=== PATIENT | female | born 1960 | race Caucasian/White ===

== ENCOUNTER 2020-11-10 10:25 | Day surgery (SDC) | payer MEDICAID, SELFPAY ==
[2020-11-10] VITALS (7 sets, daily range): BP systolic 111–168; BP diastolic 72–92; PULSE 60–69; RESP 16–18; TEMP 36.6; O2SAT 91–99; BMI 37.3
--- NOTE | 2020-11-10 | IR_ITS ---
APPROVED REPORT Patient Location: Outpatient Card Boxer: HALLE Roper RT (R) PROCEDURES Pocket Revision Removal of old generator Implant of Automatic implantable cardioverter defibrillator. INDICATION End of battery life. Informed consent was obtained prior to the procedure. COMPLICATIONS None Estimated Blood Loss: less than [address] Atul Costa Primary Home Coordinator Dr. Luis Alberto Michel observed 1% lidocaine with epinephrine used to anesthetize the left anterior aspect of the chest. Scalpel was used to make the initial cutaneous incision and then used to dissect down to the existing generator. The generator was removed from the existing pocket. Digital manipulation was required along with intermittent usage of scalpel in order to revise the pocket. The leads were removed from the old generator. The new generator was screwed to the existing leads and secured into place. Electronic interrogation proved acceptable thresholds and voltage within the lead. Antibiotics were used to flush the pocket and the pacemaker was secured using 3-0 silk into the newly revised pocket. Monocryl was used to close the subcutaneous tissue and then paul were placed on the cutaneous area in order to approximate the incision. Patient was transferred to the postop holding area in stable condition. INTERROGATION Explanted Generator Model number: Guidant E110 Explanted Generator Serial number: [id number] New Generator model number: Amol EL ICD D121 New Generator serial number: [id number] Right Atrial Lead model number: Fineline II 4473 Right Atrial Lead serial number: [id number] P-wave: 8.0 mV Impedence: 359 Ohms Threshold: 0.8V @.4 ms Right Ventricular lead model number: Bruner 0158 Right Ventricular lead serial number: [id number] R-wave: 25 mV Impedence: 463Ohms Threshold: 0.8V @0.4 ms Pacing Parameters: Mode: DDDR Base/Max Track: 60/130 ppm ICD Rate Cutoffs: VT: 180 bpm, 10.0 sec ATP, 41j x 6 VT-1: 160 bpm, 10 sec Monitor only VF: 200 bpm, 2.5 sec Quick Convert, 41j x 8 No diaphragmatic stimulation at 10 volts. IMPRESSION Successful pocket Revision Successful removal of old generator Successful Implant of Automatic implantable cardioverter defibrillator. PLAN 1. Postop wound care. Electronically signed by : Atul Costa, 11/10/2020 16:02:27
--- NOTE | 2020-11-10 11:17 | HMH.ANESCL ---
[facility] Anesthesia Checklist - Patient Identification Patient Identification: Arm Band - Structural Data Admitted From: Home Planned Operative Procedure/s: Pacemaker generator change Consent for Planned Operative Procedure(s) Verified: Yes Verified Documents: Surgical Consent, History and Physical - NPO Status Verified Time NPO: 00:00 - Additional verifications Anesthesia Reactions: No - Airway Assessment C-Spine Mobility Assessed: Yes (mp2) TMJ Mobility Assessed: Yes Dentition: Good Dentition - Neurological Assessment Level of Consciousness: Awake, Alert - Anesthesia Plan Anesthesia Risk discussed: Yes Anesthesia Plan: Verified ASA Class: III Anesthesia Type: MAC [facility] History I have reviewed the patient's past medical history: Yes Medical History: Reports:: Anxiety, Hyperlipidemia, Hypertension, Internal Pacemaker, Lung Disease (hayde-cpap hs) *Have you ever received a pneumonia vaccine?: No *Have you received a flu vaccine this season?: Yes Anesthesia experience/problems:: nac Laterality Cases: Bilateral: Tonsillectomy Other Surgeries: Yes: Hysterectomy-Total, Open Heart Surgery, Pacemaker, Other - *Social History Last grade of school completed: High school graduate Smoking Status: Current every day smoker # Packs/Day (cigarettes): 1 Alcohol Intake: never Substance Use Type: denies use *Occupational Status:: employed *Travel in the last 8 weeks: None Family Hx:: No significant family history
== END 2020-11-10 16:30 | disposition home or self-care (01) ==
LOC: CATHLAB 10:30
PROVIDERS: PCP Family Medicine; Visit Provider Internal Medicine
DX: Z45.02 Encounter for adjustment and management of automatic implantable cardiac defibrillator (principal); I42.2 Other hypertrophic cardiomyopathy; I25.10 Atherosclerotic heart disease of native coronary artery without angina pectoris; I10 Essential (primary) hypertension; Z79.899 Other long term (current) drug therapy; I25.2 Old myocardial infarction; T82.191A Other mechanical complication of cardiac pulse generator (battery), initial encounter
CPT/HCPCS: 33263; C1721; J2405